=== PATIENT | male | born 1990 | race Caucasian/White ===

== ENCOUNTER 2020-08-26 09:09 | Emergency (ER) | payer OTHER ==
[~2020-08-26] VITALS: Ht 170.2 cm; Wt 63.5 kg
[2020-08-26] MEDS ORDERED: FLUCONAZOLE150 MG PO (10:02)
[2020-08-26] MEDS ORDERED: NYSTATIN100000 UN1 PO (10:03)
--- NOTE | 2020-08-28 18:04 | EKG ---
[facility] [address] [facility] [place] [address] Signed Sinus tachycardia Biatrial enlargement Pulmonary disease pattern Abnormal ECG No previous ECGs available Confirmed by SILVIA MEADE MD ([id number] on 08/28/2020 6:04:50 PM Electronically Signed By: SILVIA MEADE MD 08/28/20 1804 PATIENT NAME: LARRY DE LA FUENTE Electrocardiogram DATE OF : 89 PHYSICIAN: SILVIA MEADE MD REPORT #: [id number] REPORT IS CONFIDENTIAL AND NOT TO BE RELEASED WITHOUT AUTHORIZATION
== END 2020-08-26 14:58 | disposition short-term general hospital (02) ==
LOC: ED 09:09
DX: E10.10 Type 1 diabetes mellitus with ketoacidosis without coma (principal); Z20.822 Contact with and (suspected) exposure to COVID-19
CPT/HCPCS: 80048; 80053; 81001; 82010; 82803; 83605; 85025; 93005; 93010; 96374; 96376; 99285-25; C9803; J3480; J7030; U0003